=== PATIENT | male | born 1990 | race Caucasian/White ===

== ENCOUNTER 2016-04-16 10:33 | Emergency (ER) ==
[2016-04-16] MEDS ORDERED: TORADOL IM ONE (12:11)
[2016-04-16] MEDS ORDERED: NORFLEX IM ONE (12:11)
--- NOTE | 2016-04-16 12:12 | PROVIDER DOCUMENTATION ---
HPI-Musculoskeletal Pain/Inj - GENERAL Chief Complaint: Back Pain Stated Complaint: back injury Time Seen by Provider: 04/16/16 12:06 Source: patient - HX OF PRESENT ILLNESS-MUSKULOSKELTAL Nature of Presenting Problem: 25 y/o WM c/o lower back pain. 3 weeks ago he was working in the yard and using a chainsaw, lifted up and his back began hurting. Thought it was a msucle spasm, but it still hasn't gone away. Tried creams, rubbing the area, having his GF walk on his back,, tylenol and motrin without relief. Pain is moderate, on the midlle and lower aspects of his thoracic and lumbar spine. does not radiate. Worse with movements, especially leaning forwards. Quality of Pain: reports: burning Severity in ED: moderate Onset/Duration: other (3 weeks) Timing: still present Review of Systems - Adult - REVIEW OF SYSTEMS - ADULT Constitutional: reports: no symptoms reported. denies: chills, fever, fatique Eyes: reports: no symptoms reported. denies: blurred vision, double vision, eye pain Ears, Nose, Mouth & Throat: reports: no symptoms reported. denies: ear pain, nose pain, throat pain Cardiovascular: reports: no symptoms reported. denies: chest pain, palpitations Respiratory: reports: no symptoms reported. denies: cough, shortness of breath Gastrointestinal: reports: no symptoms reported. denies: abdominal pain, diarrhea, nausea, vomiting Genitourinary: reports: no symptoms reported. denies: dysuria, discharge, frequency, incontinence Musculoskeletal: reports: see HPI, back pain, muscle aches. denies: joint pain Integumentary: reports: no symptoms reported Neurological: reports: no symptoms reported. denies: headache/migraines Psychiatric: reports: no symptoms reported Endocrine: reports: no symptoms reported Hematologic/Lymphatic: reports: no symptoms reported Allergic/Immunologic: reports: no symptoms reported All Other Systems: Reviewed and Negative Past History - Adult - PAST MEDICAL HISTORY-ADULT Review of Records: reports: Old Records Reviewed, Nursing Assessment Review, Medications Reviewed, Social history reviewed & non-contributory. 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 on dangers of tobacco.: Discussed manners to quit use, and f/u contacts for add'l counseling. Substance Use: denies Alcohol Use Frequency: never Physical Exam-Injury Related - Physical Exam-Injury Related General Appearance: appears well, alert, no apparent distress Eyes: PERRL/EOMI, pink conjunctivae Head, Ears, Nose, Mouth & Throat: normocephalic/atraumatic, moist mucous membranes, normal ENT inspection Neck: non-tender, full range of motion, supple, normal inspection. negative: C- spine tenderness Respiratory: chest non-tender, lungs clear, normal breath sounds, no pleuratic chest pain, no respiratory distress, no accessory muscle use. 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, no motor/sensory deficits Psych/Mental Status: AL, normal mood/affect, normal thought content, normal thought process, oriented x 3 Progress - PLAN OF CARE/RESULTS Progress/Plan/Lab Results: Vital Signs Temp Pulse Resp BP Pulse Ox 04/16/16 10:38 97.9 F 86 18 139/103 100 No Known Allergies Allergy (Verified 11/06/14 19:15) Ibuprofen [Motrin] 800 mg PO Q8H PRN PRN #20 tablet 11/06/14 Omeprazole [Prilosec] 20 mg PO DAILY@0700 #20 capsule 11/06/14 Orders Category Date Time Status LUMBAR SPINE [RAD] Stat Exams 04/16/16 12:11 Ordered Ketorolac [Toradol] Med 04/16/16 12:11 Discontinued 30 mg IM NOW ONE Orphenadrine [Norflex] Med 04/16/16 12:11 Discontinued 60 mg IM NOW ONE - XRAY 1 XRAY: Bilateral XRAY Study: Lumbar Spine Impression: Normal (NAD reviewed by Dr. Lawton) Departure - Departure Time of Disposition Order: 13:10 DIAGNOSIS: Paraspinal muscle spasm Disposition: HOME 01 Certified Medical Emergency: Emergent Condition: Stable Additional Instructions: follow up with Dr. Bob, orthopedic ED Follow Up Instructions: You have been treated by a care provider in the Emergency Department. These instructions are being provided to you so you can have an understanding of how to care for yourself upon discharge. Upon discharge from the Emergency Department, you are responsible for making arrangements for follow-up care by a physician of your choice. Take all prescribed medications as directed. Return to the Emergency Department immediately for any new or worsening symptoms. You may call the Physician Referral phone number at [phone] to obtain a list of Physicians who are taking new patients. Prescriptions: Cyclobenzaprine [Flexeril] 10 mg PO TID #20 tablet Famotidine [Pepcid] 20 mg PO DAILY #20 tablet Ketorolac [Toradol] 10 mg PO Q6H PRN PRN #20 tablet PRN Reason: Pain Referrals: None,PCP [Primary Care Provider] - Santiago Bob MD [STAFF PHYSICIAN] - Attestation - Physician/ Mid-level Attestation Patient care was provided by Mid-level provider (DECORATING MACHINE OPERATOR/PA):: Yes Mid-level provider:: Bettye Granda Mid-level documentation review:: The Mid-level provider documentation, treatment plan and medical decision making was reviewed by the physician who agrees with all treatment and medical decision making by the P.
[2016-04-16 13:22] VITALS: BP 102/62
--- NOTE | 2016-04-16 14:48 | Diag Imaging Result Document ---
PROCEDURE NAME: LUMBAR SPINE - 04/16/2016 PLAIN RADIOGRAPH OF THE LUMBAR SPINE 6 VIEWS: COMPARISON: None available. FINDINGS: There is questionable spondylolysis at L5. If so, it is of unknown acuity. Otherwise, there is no definite fracture, subluxation, or intrinsic osseous lesion appreciated. The intervertebral disk spaces and vertebral body heights are well maintained. IMPRESSION: Questionable spondylolysis at L5, but otherwise unremarkable lumbar spine.
== END 2016-04-16 13:34 | disposition home or self-care (01) ==
LOC: ED 10:33
DX: M62.830 Muscle spasm of back (principal); M54.5 Low back pain; M54.6 Pain in thoracic spine; M79.1 Myalgia; F17.210 Nicotine dependence, cigarettes, uncomplicated; Z71.6 Tobacco abuse counseling; X58.XXXA Exposure to other specified factors, initial encounter
CPT/HCPCS: 72110; 96372; J1885; J2360